=== PATIENT | male | born 1960 | race Caucasian/White ===

== ENCOUNTER 2018-05-06 17:03 | Emergency (ER) | payer BC ==
[2018-05-06 17:13] VITALS: BP 135/83; PULSE 89; RESP 18; TEMP 98.3
[2018-05-06] MEDS ORDERED: valACYclovir 500 MG TAB PO STA (17:25)
[2018-05-06] MEDS ORDERED: LIDOCAINE 5% PATCH TOPICAL STA (17:26)
--- NOTE | 2018-05-06 17:58 | ED ---
Skin/Abscess/FB HPI - General Chief complaint: Skin/Abscess/Foreign Body Stated complaint: Shingles Time Seen by Provider: 05/06/18 17:06 Source: patient, RN notes reviewed Mode of arrival: ambulatory Limitations: no limitations - History of Present Illness Initial comments: This is a 58-year-old male who presents to the emergency department with chief complaint of rash. Patient states that he has not felt well over the past few days. He reports feeling pain to his left flank since last Monday. This morning when he woke up there was a rash on his low back on the left side. States that the pain is not pruritic or painful. States he is up-to-date with vaccinations. Denies fevers or chills, chest pain or shortness of breath, abdominal pain, nausea or vomiting. - Related Data Previous Rx's Medication Instructions Recorded Lidocaine 5% Patch [Lidoderm 5% 1 patch TOPICAL DAILY #2 patch 05/06/18 Patch] valACYclovir HCL [Valtrex] 1,000 mg PO TID 7 Days #21 tablet 05/06/18 Allergies Allergy/AdvReac Type Severity Reaction Status Date / Time Iodinated Contrast- Oral and Allergy Rash/Hives Verified 05/06/18 17:13 IV Dye shellfish derived [Shellfish] Allergy Rash/Hives Verified 05/06/18 17:13 Review of Systems ROS Statement: Those systems with pertinent positive or pertinent negative responses have been documented in the HPI. ROS Other: All systems not noted in ROS Statement are negative. Past Medical History Past Medical History: Atrial Fibrillation, Hypertension History of Any Multi-Drug Resistant Organisms: None Reported Past Surgical History: Heart Catheterization With Stent, Joint Replacement Past Psychological History: No Psychological Hx Reported Smoking Status: Current every day smoker Past Alcohol Use History: Occasional Past Drug Use History: None Reported General Exam - General Exam Comments Initial Comments: General: Awake and alert, well-developed; in no apparent distress. HEENT: Head atraumatic, normocephalic. Pupils are equal, round and reactive to light. Extraocular movements intact. Oropharynx moist without erythema or exudate. Neck: Supple. Normal ROM. Cardiovascular: Regular rate and rhythm. No murmurs, rubs or gallops. Chest symmetrical. Respiratory: Lungs clear to auscultation bilaterally. No wheezes, rales or rhonchi. Normal respiratory effort with no use of accessory muscles. Musculoskeletal: Normal ROM, no tenderness bilateral upper and lower extremities. Ambulating normally. Skin: Maculopapular erythematous rash with a few overlying vesicles in dermatomal pattern left lower back. Neurological: Alert and oriented x3. CN II-XII grossly intact. Speech is fluent and answers are appropriate. No focal neuro deficits. Psychiatric: Normal mood and affect. No overt signs of depression or anxiety noted. Limitations: no limitations Course Vital Signs 05/06/18 17:10 Temperature 98.3 F Pulse Rate 89 Respiratory 18 Rate Blood Pressure 135/83 O2 Sat by Pulse 98 Oximetry Medical Decision Making - Medical Decision Making This is a 58-year-old male who presents to the emergency department with chief complaint of rash. Patient reports feeling pain in the left flank a few days ago. Today, a macular papular rash with vesicles in a dermatomal pattern erupted over the left flank. Rash is consistent with shingles. Patient will be treated with Valtrex and lidocaine patches. Vitals are stable and patient is in no acute distress. He will be discharged home at this time. He is in agreement and voices understanding. All questions were answered. Disposition Clinical Impression: Herpes zoster Disposition: HOME SELF-CARE Condition: Good Instructions: Shingles (ED) Additional Instructions: Please take medications as prescribed. Please follow up with primary care provider within 1-2 days. Return to emergency department if symptoms should worsen or any concerns arise. Prescriptions: Lidocaine 5% Patch [Lidoderm 5% Patch] 1 patch TOPICAL DAILY #2 patch valACYclovir HCL [Valtrex] 1,000 mg PO TID 7 Days #21 tablet Is patient prescribed a controlled substance at d/c from ED?: No Referrals: Amita Arriola DO [Primary Care Provider] - 1-2 days Time of Disposition: 17:58
== END 2018-05-06 18:00 | disposition home or self-care (01) ==
LOC: EC 17:03
DX: B02.9 Zoster without complications (principal); I48.91 Unspecified atrial fibrillation; F17.200 Nicotine dependence, unspecified, uncomplicated; Z91.041 Radiographic dye allergy status; Z91.048 Other nonmedicinal substance allergy status; Z91.013 Allergy to seafood; Z95.5 Presence of coronary angioplasty implant and graft
CPT/HCPCS: 99282

== ENCOUNTER → 2019-05-13 | Outpatient (CLI) | payer BC ==
--- NOTE | 2019-05-14 07:44 | US ---
EXAMINATION TYPE: US renals and bladder DATE OF EXAM: 05/13/2019 COMPARISON: NONE CLINICAL HISTORY: R31.0 Hematuria. Hematuria, HTN. EXAM MEASUREMENTS: Right Kidney: 10.6 x 6.0 x 5.4 cm Left Kidney: 11.3 x 6.2 x 6.1 cm Right Kidney: No hydronephrosis or masses seen Left Kidney: Nearly anechoic area seen mid pole with increased through transmission measuring 1.2 x 1 .1 x 1.4, renal sinus cyst Bladder: Minimal internal echoes seen, possible artifact. Bilateral Jets seen: Yes IMPRESSION: 1. Few internal echoes are seen within the urinary bladder. Although this is possibly artifact in the setting of hematuria CT cystogram or direct visualization would be recommended. 2. Benign-appearing left renal sinus cyst. No hydronephrosis of either kidney.
== END | disposition home or self-care (01) ==
LOC: RADUSMAIN 17:53
PROVIDERS: ATTEND Urology
DX: N28.1 Cyst of kidney, acquired (principal); Z88.3 Allergy status to other anti-infective agents; Z91.013 Allergy to seafood
CPT/HCPCS: 76770

== ENCOUNTER → 2024-01-24 | Outpatient (CLI) | payer MEDICARE, BC ==
--- NOTE | 2024-01-25 09:43 | CA ---
Transthoracic Echo Report Name: Justino Hope Age: 64 Gender: M : 1960 Exam Date: 01/24/2024 14:42 Exam Location: [facility] Ht (in): 68 Wt (lb): 205 Ordering Physician: Amita Arriola DO Attending/Referring Phys: Tv Technician Adeline Frankel RDCS Procedure CPT: Indications: I51.7 Cardiomegaly Cardiac Hx: Technical Quality: Fair Contrast 1: Total Dose (mL): Contrast 2: Total Dose (mL): MEASUREMENTS (Male / Female) Normal Values 2D ECHO LV Diastolic Diameter PLAX 5.1 cm 4.2 - 5.9 / 3.9 - 5.3 cm LV Systolic Diameter PLAX 3.7 cm IVS Diastolic Thickness 1.1 cm 0.6 - 1.0 / 0.6 - 0.9 cm LVPW Diastolic Thickness 1.0 cm 0.6 - 1.0 / 0.6 - 0.9 cm LV Relative Wall Thickness 0.4 RV Internal Dim ED PLAX 2.2 cm LA Systolic Diameter LX 3.9 cm 3.0 - 4.0 / 2.7 - 3.8 cm LV Diastolic Volume MOD BP 76.7 cm??? 67 - 155 / 56 - 104 cm??? LV Systolic Volume MOD BP 29.5 cm??? 22 - 58 / 19 - 49 cm??? LV Ejection Fraction MOD BP 61.6 % >= 55 % LV Cardiac Index MOD BP 1237.0 cm???/min???m??? LV Diastolic Volume MOD 4C 69.4 cm??? LV Systolic Volume MOD 4C 30.7 cm??? LV Ejection Fraction MOD 4C 55.8 % LV Cardiac Index MOD 4C 1013.2 cm???/min???m??? LV Diastolic Length 4C 7.1 cm LV Systolic Length 4C 6.0 cm LV Diastolic Volume MOD 2C 83.3 cm??? LV Systolic Volume MOD 2C 26.5 cm??? LV Ejection Fraction MOD 2C 68.3 % LV Cardiac Index MOD 2C 1488.4 cm???/min???m??? LV Diastolic Length 2C 6.9 cm LV Systolic Length 2C 6.4 cm LA Volume 63.4 cm??? 18 - 58 / 22 - 52 cm??? LA Volume Index 29.6 cm???/m??? 16 - 28 cm???/m??? M-MODE Aortic Root Diameter MM 3.5 cm LA Systolic Diameter MM 3.7 cm LA Ao Ratio MM 1.1 AV Cusp Separation MM 1.8 cm DOPPLER AI Peak Velocity 169.5 cm/s AI Peak Gradient 11.5 mmHg AI Pressure Half Time 780.4 ms MV Area PHT 3.6 cm??? Mitral E Point Velocity 81.0 cm/s Mitral A Point Velocity 75.0 cm/s Mitral E to A Ratio 1.1 MV Deceleration Time 209.8 ms TR Peak Velocity 226.4 cm/s TR Peak Gradient 20.5 mmHg FINDINGS Left Ventricle Left ventricular ejection fraction is estimated at 55-60 %. Normal Left ventricular size, wall thickness, systolic function with no obvious regional wall motion abnormalities. Normal Left ventricular diastolic filling pattern. Right Ventricle Normal right ventricular size and function. Right ventricular systolic pressure within normal limits. Right Atrium Mild right atrial dilatation. Left Atrium Mildly increased left atrial volume. Mitral Valve Structurally normal mitral valve. Mild mitral regurgitation. Aortic Valve Trileaflet aortic valve. No aortic stenosis. Trace aortic regurgitation. Tricuspid Valve Structurally normal tricuspid valve. Mild tricuspid regurgitation. No tricuspid stenosis. Pulmonic Valve Structurally normal pulmonic valve. Trace pulmonic regurgitation. No pulmonic stenosis. Pericardium No pericardial or pleural effusion. Aorta Normal size aortic root and proximal ascending aorta. CONCLUSIONS Left ventricular ejection fraction 55-60% RVSP 20 Mild mitral regurgitation Mild tricuspid regurgitation Previewed by: Dr. Sam Castañeda DO (Electronically Signed) Final Date: 25 January 2024 09:42
== END | disposition home or self-care (01) ==
LOC: RADECHMAIN 14:31
PROVIDERS: ATTEND Family Medicine
DX: I08.1 Rheumatic disorders of both mitral and tricuspid valves (principal)
CPT/HCPCS: 93306

== ENCOUNTER → 2024-02-01 | Outpatient (CLI) | payer MEDICARE, BC ==
[~2024-02-01] MED LIST: REGADENOSON 0.4 MG/5 ML SYRINGE IV PRN
--- NOTE | 2024-02-01 12:54 | CA ---
Lexiscan Nuclear Stress Test Report Name: Justino Hope Exam Date: 02/01/2024 10:20 Exam Location: [place] [facility] Ht (in): 68 Wt (lb): 210 BSA: 2.09 Ordering Phys: Amita Arriola DO Referring Phys: AMITA ARRIOLA Technologist: Maverick Ravi Age: 64 Gender: M : 1960 Procedure CPT: Indications: I51.7 Cardiomegaly ICD-10 Codes: Patient History: Medications: ELOQUIS,,, Meds past 24 hrs: Pretest Chest Pain: STRESS TEST Lexiscan Protocol Exercise Duration (min:sec): 01:[address] Depressions (mm): Angina Score: Lawson Score: Resting HR (bpm): 61 Peak HR (bpm): 77 Resting BP (mmHg): 130 / 79 Peak BP (mmHg): 111 / 69 MPHR: 155 Target HR: 132 % MPHR: 50 METS: 1.0 Total Dose: Peak Dose: Atropine: Double Product: 8547 BP Response: Stress Termination: INFUSION COMPLETE Stress Symptoms: NO SYMPTOMS Stress Summary: ECG ANALYSIS Resting ECG: Stress ECG: CONCLUSIONS At baseline EKG showed normal sinus rhythm, normal axis, ST depressions in the inferior leads as well as V2 through V5. Patient recieved IV infusion of Lexiscan 0.4mg and at peak infusion EKG showed no significant change from baseline. Conclusions: 1. Nonspecific stress EKG portion second baseline EKG abnormalities 2. Nuclear imaging to be reported separately. Dr. Sam Castañeda DO (Electronically Signed) Final Date: 01 February 2024 12:53
--- NOTE | 2024-02-02 10:56 | NM ---
EXAMINATION TYPE: NM stress lexiscan cardiolite DATE OF EXAM: 02/02/2024 COMPARISON: NONE CLINICAL INDICATION: Male, 64 years old with history of I51.7 CARDIOMEGALY; TECHNIQUE: After the intravenous administration of 10.6 mCi Tc 99m Sestamibi - Cardiolite resting SP ECT images acquired 45 minutes post injection. The patient received 0.4mg Lexiscan, 26.5 mCi Tc 99m Sestamibi - Stress images obtained [address] injection FINDINGS: Review of stress and rest SPECT images demonstrates small to moderate-sized area of focal reversibili ty along the mid to basal lateral wall. No other discrete reversibility is seen. Gated analysis shows normal wall motion with an estimated left ventricular ejection fraction of 51 %. TID is calculated upper limits of normal at 1.15. IMPRESSION: 1. Scintigraphic findings suggest a small to moderate-sized area of reversibility along the mid to ba beto lateral wall. Further clinical correlation recommended. 2. Borderline LVEF 51%. 3. Transient ischemic dilatation ratio calculated upper limits of normal at 1.15.
== END | disposition home or self-care (01) ==
LOC: RADNMMAIN 08:21
PROVIDERS: ATTEND Family Medicine
DX: I51.7 Cardiomegaly (principal); R94.31 Abnormal electrocardiogram [ECG] [EKG]
CPT/HCPCS: 93017; 78452; A9500; J2785

== ENCOUNTER 2024-02-27 09:36 | Day surgery (SDC) | payer BC, MEDICARE ==
[2024-02-16 15:05] VITALS: BMI 31.9
[2024-02-27] MEDS ORDERED: ALPRAZolam 0.5 MG TAB ONE ×2 (10:15)
[2024-02-27] MEDS ORDERED: LIDOCAINE 1% INJ 10MG/ML (20 ML MDV) ONE ×2 (10:22)
[2024-02-27] MEDS ORDERED: VERAPAMIL 2.5 MG/ML 2 ML AMP ONE ×2 (10:22)
[2024-02-27] MEDS ORDERED: HEPARIN SODIUM 1,000 UN/ML (10ML VL) ONE ×2 (11:35)
[2024-02-27] MEDS ORDERED: MIDAZOLAM 2 MG/2 ML VIAL ONE (11:35)
[2024-02-27] MEDS ORDERED: SODIUM CHLORIDE 0.9% 1,000 ML BAG ONE ×2 (11:50→12:25)
[2024-02-27] MEDS ORDERED: fentaNYL (PF) 50 MCG/ML 2 ML AMP ONE ×2 (11:52)
[2024-02-27] MEDS: IOPAMIDOL-370 200ML BTL INJ ONE (12:23)
[2024-02-27] MEDS ORDERED: SODIUM CHLORIDE 0.9% 250 ML BAG ONE (12:25)
[2024-02-27] MEDS ORDERED: HEPARIN SODIUM,PORCINE 5,000 UNIT/ML 1 ML VIAL ONE (12:25)
[2024-02-27] MEDS ORDERED: HEPARIN SODIUM,PORCINE 10,000 UNIT/ML 1 ML VIAL ONE (12:25)
--- NOTE | 2024-03-08 15:53 | CONS ---
CONSULTATION HISTORY OF PRESENT ILLNESS: This is a 64-year-old gentleman, who follows on an outpatient basis with Dr. Chemo Arriola, his primary care and with Dr. Dain Solorio for his cardiology care. He has a past medical history significant for hypertension, hyperlipidemia, persistent paroxysmal atrial fibrillation, which has been present for 10 years, takes Eliquis for anticoagulation on an outpatient basis; history of coronary artery disease with previous stent placement to his left anterior descending coronary artery in July 2013 and previous stent placement to his right coronary artery in January of 2014, history of obstructive sleep apnea with being noncompliant with CPAP use, remote history of hematuria, tinnitus, occasional ETOH drinking 2 to 4 beers per week, and is a lifetime nonsmoker. Recently, the patient has had complaints of shortness of breath intermittent episodes of chest pain, which is relieved by rest and occasional nitroglycerin sublingual. He recently underwent a nuclear med stress Lexiscan on February 01, 2024 with findings suggestive of a [id number] sized area of reversibility along the mid to basal lateral wall. Due to the patient's symptoms, stress test results, and history of coronary artery disease he was recommended to undergo a cardiac catheterization, which was completed today and revealed triple vessel coronary artery disease. The patient also underwent a transthoracic 2D echocardiogram, which was completed on January 24, 2024, which showed a left ventricular ejection fraction estimated at 55% to 60%, normal left ventricular size, wall thickness, systolic function with no obvious regional wall motion abnormalities, mild mitral valve regurgitation, trace aortic valve regurgitation, mild tricuspid regurgitation, and trace pulmonic valve regurgitation. Subsequently, due to the patient's findings on his cardiac catheterization, a consult was placed to Dr. Sandra Heard from Cardiothoracic Surgery for further evaluation and recommendations including myocardial revascularization surgery. The patient did have some laboratory results drawn today with his WBC count showing 14.9, hemoglobin 15.9, hematocrit 46.1, platelets 136. Sodium 138, potassium 5.4 with hemolyzed specimen, BUN 15 and creatinine 0.80. The patient has denied any recent fever, chills, nausea, vomiting, diarrhea, constipation, headache, dizziness, lightheadedness, presyncope, syncope, or edema to his lower extremities. A review of systems was completed and it was negative except as mentioned in the HPI. FAMILY HISTORY: His mom is healthy and is 92 years old. His father has a history of coronary artery disease, having undergone a 3-vessel coronary artery bypass grafting surgery in his 40s and of a myocardial infarction at age 67. SOCIAL HISTORY: He is a lifetime nonsmoker. Occasional ETOH use, drinking 2 to 4 beers per week and denies drug use. PHYSICAL EXAMINATION: GENERAL: The patient is alert and oriented x3. He is cooperative and is in no acute apparent distress. LUNGS: Essentially clear throughout. No wheezes, rhonchi, or crackles. HEART: S1 and S2 present. Negative for S3 gallop. Regular rhythm and rate. Soft systolic murmur. HEENT: Mucous membranes pink and moist. Negative for carotid bruits. GASTROINTESTINAL: Abdomen is soft, nontender, and nondistended. Active bowel sounds present in all 4 abdominal quadrants. No guarding or rigidity. No organomegaly appreciated. : Deferred. NEUROLOGIC: No focal deficits. MUSCULOSKELETAL: Moves all 4 extremities with equal strength bilaterally. MEDICATIONS: 1. Zetia 10 mg p.o. daily. 2. Eliquis 2.5 mg p.o. b.i.d. 3. Sotalol 80 mg p.o. b.i.d. 4. Multivitamin one tablet p.o. daily. 5. Nitroglycerin 0.4 mg sublingual tablet p.r.n. q.5 minutes for angina relief. ASSESSMENT: 1. Multivessel coronary artery disease, history of previous percutaneous coronary intervention to his left anterior descending coronary artery and right coronary artery in 2013. 2. Persistent paroxysmal atrial fibrillation, on Eliquis for anticoagulation on an outpatient basis. 3. Hypertension. 4. Dyslipidemia. 5. Obstructive sleep apnea with noncompliance with his CPAP use. 6. Tinnitus. 7. History of hematuria. 8. He is a lifetime nonsmoker. 9. Occasional ETOH use with 2 to 4 beers per week. PLAN: The patient was seen and examined at his bedside in the extended stay unit with 3 family members present at his bedside. His chart and diagnostics were reviewed. His case was discussed in detail with Dr. Sandra Heard from Cardiothoracic Surgery. Preoperative testing and preoperative teaching have been initiated. Once the patient is able to ambulate, we will obtain a 5-meter walk test. A clinical frailty score was calculated at 2, which shows mild frailty. Once the patient's preoperative testing has been obtained, an STS risk score will be calculated and discussed with the patient. The patient will be scheduled for an appointment with Dr. Sandra Heard this Friday, March 01, 2024 at 11:30 a.m. to discuss further treatment options with the patient. More recommendations to follow based on the patient's clinical course and as the patient's preoperative testing has been obtained. MMODL / IJN: [id number] /
--- NOTE | 2024-03-28 14:37 | CC ---
CARDIAC CATHETERIZATION REPORT PERFORMING PHYSICIAN: Dain Solorio MD PROCEDURES PERFORMED: 1. Selective right and left coronary angiogram. 2. IFR of the LAD and left main. INDICATION: Symptomatic 64-year-old gentleman with abnormal myocardial perfusion imaging stress test. COMPLICATIONS: None. LEVEL OF SEDATION: Moderate with sedation length of 30 minutes. PROCEDURE DESCRIPTION: After obtaining an informed consent, the patient was brought to the cardiac cardiac catheterization technician. The right radial artery was cannulated using micropuncture technique under ultrasound guidance. The micropuncture wire passed easily, then I placed a 6-Trinidadian 11 cm sheath at the right radial artery. After that I did selective right and left coronary angiogram using JR4 and JL3.5 guiding catheter. After that I did an IFR of the LAD and left main. The procedure was completed with no complication. Selective coronary angiogram. 1. The RCA is a large-caliber vessel and a dominant vessel with mild disease only. 2. The left main has plaque in the mid portion, appeared to be in the range of 30%. Bifurcates into LCX and LAD. 3. The LCX is a large-caliber vessel with ostial lesion reaching all the way to left main appeared to be in the range of 99.9%. 4. The LAD has severe lesion documented to be flow-limiting by Doppler wire. The stent in the mid LAD appeared to be patent. CONCLUSION: 1. Critical disease involving the ostial left circumflex coronary artery. 2. Severe lesion involving the proximal to mid LAD with patent stent in the mid left anterior descending artery. POSTPROCEDURE MANAGEMENT: Given the above anatomy, I would advise the patient to be seen by a surgeon for the evaluation of CABG. MMODL / IJN: [id number] /
--- NOTE | 2024-04-11 12:05 | XR ---
Patient: Justino Hope Ordering Physician: Unknown, Unknown ID: [id number] Phone, Pager: Phone: N/A P ager: N/A : 1960 Age/Gender: 64Y, M Primary Location: N/A Procedure: XR CHEST 2V Study Date: 02/27/2024 4:54:00 PM Order #: N/A EXAMINATION TYPE: XR chest 2V DATE OF EXAM: 03/06/2024 COMPARISON: 02/27/2024 HISTORY: Shortness of breath TECHNIQUE: Frontal and lateral views of the chest are obtained. FINDINGS: Scattered senescent parenchymal changes noted. Hyperinflation compatible with COPD. No evidence for infiltrate. No evidence for atelectasis. Heart size is stable. Mediastinal structures are stable and grossly unremarkable. No evidence for hilar prominence. Degenerative changes dorsal spine. IMPRESSION: 1. No evidence for acute pulmonary disease.
== END 2024-02-27 17:37 | disposition home or self-care (01) ==
LOC: CATHCVL 09:36
PROVIDERS: ATTEND Internal Medicine Interventional Cardiology
DX: R06.02 Shortness of breath
CPT/HCPCS: 71046; 83036; 86850; 86900; 86901; 87070; 87086; 93454; 93799; 94150